=== PATIENT | male | born 1995 | race Caucasian/White ===

== ENCOUNTER 2017-09-24 14:48 | Emergency (ER) | payer OTHER ==
[2017-09-24 14:58] VITALS: BP 150/49; PULSE 65; RESP 18; TEMP 98.4; O2SAT 97
--- NOTE | 2017-09-24 15:39 | EDPHY ---
General - History Smoking Status: Never smoked Narrative: CHIEF COMPLAINT: Snowboarding injury, clavicle pain HISTORY OF PRESENT ILLNESS: Patient was snowboarding at [place] [employer]. He says that he fell, landing on outstretched right arm. He has no pain at all on the hand or wrist. He does have pain in the right clavicle. No head strike or loss of consciousness, and he was wearing a helmet. His only complaint is right clavicle pain. He has no pain in the scapula, chest, abdomen, back. No pain in the left upper extremity. The pain is severe. Worse with attempted movement of the right arm. No numbness or tingling. No complaints distally. No other associated complaints or modifying factors. REVIEW OF SYSTEMS: Ten systems reviewed and are negative unless otherwise noted in the HPI PCP: Does not recall the name SPECIALISTS: None PAST MEDICAL HISTORY: Anxiety PAST SURGICAL HISTORY: Appendectomy remotely SOCIAL HISTORY: Nonsmoker. Currently student [employer]. Originally from [place] FAMILY HISTORY: Noncontributory EXAMINATION General Appearance: Alert, no distress Head: normocephalic, atraumatic. No Jennings sign. No raccoon eyes. Eyes: Pupils equal and round, no conjunctival pallor or injection ENT, Mouth: Mucous membranes moist airway patent Neck: Normal inspection, supple, non-tender. Painless range of motion all planes. No crepitus, step-off or deformity. Respiratory: Lungs are clear to auscultation. No wheezing, rhonchi or crackles Cardiovascular: Regular rate and rhythm. No murmur. Symmetric radial pulses 2+ . Gastrointestinal: Abdomen is soft and nontender. No distention. Back: non-tender, no bony abnormalities Neurological: GCS 15. 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 Skin: Warm and dry, no rash. No petechiae purpura. No puncture. No ecchymosis of the clavicle or shoulder Extremities: Tenderness in the mid shaft right clavicle. No deformity. No puncture. No laceration. Range of motion of the right shoulder limited due to the pain in the clavicle. Range of motion of the right elbow and wrist fully intact without deficit. Neurovascular intact distally in the right upper extremity Psychiatric: Mood and affect normal DIFFERENTIAL DIAGNOSES: Including but not limited to shoulder sprain, clavicle fracture, carpal contusion, AC separation, AC sprain MDM: 3:35 p.m. Snowboarding injury with right clavicle pain. Additional x-ray does not show any obvious fracture as read by me. He is neurovascular intact with clinical picture suggesting clavicle fracture. I have ordered a dedicated clavicle x- ray. He is in no acute distress. 4:15 p.m. The clavicle x-ray as read by me reveals no definite fracture but there may be a greenstick fracture which would be unlikely for the patient's age. Clinically he is in no acute distress. I do not appreciate any injury to the lungs on the x-rays obtained. He will be discharged home with a sling, anti- inflammatory and short course of pain medication. Follow up with orthopedist as provided. ED precautions as discussed. Weightbearing as tolerated. He is comfortable this plan and discharged home neurovascular intact, in stable condition. SUPERVISION: This patient was independently evaluated without direct involvement of or examination by the attending physician. (Jose E Courtney) Medical Decision Making: I did not see this patient while he is in the emergency department. However his care was discussed with the PA while the patient was in the department. I agree with treatment plan and management. I am the secondary supervising physician (Yaron Angeles) - Diagnostics Imaging Results: Imaging Impressions Shoulder X-Ray 09/24/17 14:59 Impression: Negative right shoulder radiographs. Clavicle X-Ray 09/24/17 15:39 Impression: 1. Negative right clavicle radiographs. - Objective Vital Signs: Initial Vital Signs Temperature (C) 36.9 C 09/24/17 14:56 Heart Rate 65 09/24/17 14:56 Respiratory Rate 18 09/24/17 14:56 Blood Pressure 150/49 H 09/24/17 14:56 O2 Sat (%) 97 09/24/17 14:56 Allergies/Adverse Reactions: No Known Allergies Allergy (Verified 09/24/17 14:56) Home Medications: Medication Instructions Recorded Acetaminophen [Tylenol 325mg (*)] 1,000 mg PO Q8 #60 tab 09/26/16 Citalopram [CeleXA 20 MG] 20 mg PO DAILY 09/26/16 HYDROmorphone HCL [Dilaudid 2 mg 2 mg PO Q4 PRN #15 tab 09/26/16 (*)] Ketorolac Tromethamine [Toradol] 10 mg PO Q6H #16 tab 09/26/16 Hydrocodone/Acetaminophen [[place] 1 each PO Q4-6PRN PRN #11 tablet 09/24/17 7.5-325 Tablet] Medications Given: Discontinued Medications Hydrocodone Bitart/Acetaminophen ([place] 5/325) 1 tab PO EDNOW ONE Stop: 09/24/17 16:16 Last Admin: 09/24/17 16:16 Dose: 1 tab Departure - Departure Disposition: Home, Routine, Self-Care Clinical Impression: Snowboard accident Qualifiers: Encounter type: initial encounter Qualified Code(s): V00.318A - Other snowboard accident, initial encounter Contusion of right clavicle Qualifiers: Encounter type: initial encounter Qualified Code(s): S40.011A - Contusion of right shoulder, initial encounter Condition: Good Instructions: Contusion in Adults (ED), Shoulder Pain (ED) Additional Instructions: 1. Ice to the affected area frequently 2. Ibuprofen 600 mg every 6-8 hours as needed 3. Pain medication as prescribed as needed 4. Follow up with Orthopedics for definitive care Referrals: Bassem Nash MD [Medical Doctor] - As per Instructions Stand Alone Forms: School Excuse Prescriptions: Hydrocodone/Acetaminophen [[place] 7.5-325 Tablet] 1 each PO Q4-6PRN PRN #11 tablet PRN Reason: Pain, Moderate
[2017-09-24] MEDS ORDERED: HYDROCODONE/APAP 5/325 TAB ONE (16:14)
[2017-09-24] MEDS ORDERED: HYDROCODONE/APAP 5/325 TAB PO ONE (16:15)
== END 2017-09-24 16:30 | disposition home or self-care (01) ==
DX: S40.011A Contusion of right shoulder, initial encounter (principal); V00.311A Fall from snowboard, initial encounter; Y99.8 Other external cause status; Y93.23 Activity, snow (alpine) (downhill) skiing, snowboarding, sledding, tobogganing and snow tubing
CPT/HCPCS: A4565

== ENCOUNTER 2018-10-05 02:23 | Emergency (ER) | payer OTHER ==
[2018-10-05 02:33] VITALS: BP 138/104
[2018-10-05] MEDS ORDERED: SKIN ADHESIVE (DERMABOND) 1 EACH TP ONE (02:39)
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
== END 2018-10-05 03:12 | disposition home or self-care (01) ==
LOC: EDUNIT#
PROC: 0HQ1XZZ Repair Face Skin, External Approach (ICD-10-PCS; principal; 2018-10-05)
DX: F10.920 Alcohol use, unspecified with intoxication, uncomplicated (principal); S01.411A Laceration without foreign body of right cheek and temporomandibular area, initial encounter; S09.90XA Unspecified injury of head, initial encounter; Y04.0XXA Assault by unarmed brawl or fight, initial encounter; R40.2412 Glasgow coma scale score 13-15, at arrival to emergency department